=== PATIENT | male | born 2000 | race Caucasian/White ===

== ENCOUNTER → 2022-05-04 12:29 | Outpatient (CLI) | payer BC, SELFPAY ==
--- NOTE | 2022-05-04 12:37 | US_ITS ---
FINAL REPORT CLINICAL HISTORY: RIGHT AXILLARY LYMPHADENOPATHY COMPARISON: None FINDINGS: ULTRASOUND SOFT TISSUE LIMITED Sonographic images of the right axilla in the area of interest were obtained. There is a hypoechoic focus measuring 1.6 cm and a 2nd measuring 1.0 cm. These may represent sebaceous cysts or lymph nodes. IMPRESSION: Findings may represent sebaceous cyst or lymph nodes. Reviewed, Interpreted and Dictated by Antwan Wright MD Transcribed by Janet Hernandez Authenticated and [facility]
--- NOTE | 2022-05-04 12:37 | US_ITS ---
FINAL REPORT CLINICAL HISTORY: LEFT AXILLARY LYMPHADENOPATHY COMPARISON: None FINDINGS: ULTRASOUND SOFT TISSUE LIMITED Sonographic images of the left axilla in the area of interest were obtained. There are ovoid hypoechoic areas measuring up to 1.4 cm which may represent nodes or sebaceous cysts. IMPRESSION: Findings may represent nodes or sebaceous cysts. Correlate with palpable abnormalities. Reviewed, Interpreted and Dictated by Antwan Wright MD Transcribed by Janet Hernandez Authenticated and [facility]
== END ==
PROVIDERS: PCP Nurse Practitioner Family; Visit Provider Nurse Practitioner Family
DX: R59.0 Localized enlarged lymph nodes (principal)
CPT/HCPCS: 76882

== ENCOUNTER 2024-09-21 09:36 | Emergency (ER) | payer BC, SELFPAY ==
[2024-09-21 09:43] VITALS: BP 163/96; PULSE 106; RESP 19; TEMP 37; O2SAT 98; BMI 34.7
--- NOTE | 2024-09-21 10:05 | ED_ITS ---
Discharge Plan Disposition Patient Disposition: Home, Self-Care Prescriptions Prescriptions: New wmbzqxjn-hvfittbyx-VG 3.5-10,000-1 mg/mL-unit/mL-% drops,suspension 4 drp otic (ear) TID 7 Days Qty: 10 0RF Referrals Follow up/Referrals: Justin Hill MD [Physician, Ear, Nose, Throat] - See instructions Rose Marshall APRN [Primary Care Provider, Medical] - See instructions Activity Restrictions/Add. Instructions Additional Instructions/Restrictions: Evidence of severe bilateral otitis externa likely superimposed upon otitis media. I recommend you follow-up closely with ENT to ensure resolution. Return to the emergency department with severe headaches changes in mental status any neurologic complaints inability get your fever down with Tylenol or ibuprofen or other concerns. Clinical Impressions Clinical Impression: Bilateral otitis externa Print Language Print Language: Ukrainian Discharge ED Provider: Angie Kirk General Adult HPI General Chief complaint: Ear Stated complaint: poss. ruptured l. eardrum/infection in both fever Time Seen by Provider: 09/21/24 09:58 Mode of Arrival: Ambulatory Source of Information: Patient Description of Symptoms (Recalled from ER Triage Doc. by RN): Patient presents to ED from home reporting concerns his left eardrum ruptured . States he was dx with a bilateral ear infection yesterday and started having green fluid leaking from his left ear last night. States he is currently on ABX and Steroids. History of Present Illness HPI narrative: 24-year-old presenting today with bilateral ear pain. He is concerned that he may have a ruptured tympanic membrane because he had some discharge from his ears. States that several days ago he was cleaning his ears out and was using a Q-tip and was aggressively doing so and also using peroxide. Since that time he began having fevers pain and chills. Went to primary care doctor was started on Augmentin and prednisone. Fever yesterday evening. Related Data Previous Rx's ?Medication ?Instructions ?Recorded hsnzxwem-vcelvqcqm-wwgfllazr 3.5 4 drp otic (ear) TID 7 days #10 mL 09/21/24 mg-10,000 unit/mL-1 % ear drops,susp Allergies Allergy/AdvReac Type Severity Reaction Status Date / Time No Known Allergies Allergy Verified 09/21/24 09:51 [facility] Disclaimer: The information contained in this section may have been updated after the patient was seen, as this information can be updated by other users. Social History Smoking Status: Never smoker alcohol intake: never current occupational status: other Travel in the last 8 weeks?: None ROS Obtained: Yes All systems reviewed & no additional complaints except as documented Physical Exam General General appearance: alert and in no apparent distress ENT ENT exam: Present other (Severe bilateral otitis externa no evidence of any bleeding or tympanic membrane rupture bilaterally positive tragus sign bilaterally no pain or tenderness over the mastoid air cells) Respiratory Respiratory exam: Present normal lung sounds bilaterally Cardiovascular Cardiovascular exam: Present regular rate Neurological Exam Neurological exam: Present alert, oriented X3, CN II-XII intact and normal gait; Absent motor sensory deficit Medical Decision Making Medical Records Screening: Per USPSTF and CDC recommendations, given the prevalence of disease in our region, it is our hospital?s policy to screen for HIV and viral Hepatitis for all patients aged 18 and over and those with ongoing risk factors. Cr Inquiry Pt receiving controlled substance: No Vital Signs: 09/21/24 09:43 Temperature 98.6 F Temperature Source Oral Pulse Rate [Left] 106 H Respiratory Rate 19 Blood Pressure [Left Arm] 163/96 H Blood Pressure Mean [Left Arm] 118 Blood Pressure Source [Left Arm] Automatic Cuff 02 Sat by Pulse Oximetry 98 Oxygen Delivery Method Room Air Medical Decision Narrative: 24-year-old with severe bilateral otitis externa likely superimposed on otitis media. He is systemically ill out of proportion to what I am seeing externally. He has no mastoid air cell tenderness no significant headache no neurologic symptoms and not concerned at the moment about any intracranial extension however given the severity of this we will have him closely follow-up with ENT. Agree with his Augmentin and prednisone which he recently started. I will add topical drops to his regimen. Return precautions emphasized patient discharged in stable condition. Critical Care Critical Care Time Critical Care Time: No
[2024-09-21 10:15] VITALS: PULSE 104; RESP 19; O2SAT 97
[2024-09-21 10:57] VITALS: BP 163/96; PULSE 68; RESP 16; TEMP 36.9; O2SAT 97
--- NOTE | 2024-09-21 11:23 | PC.NURSE ---
Patient called this Emergency Department requesting that we transfer the prescription to a different store due to [facility] not having the prescription
== END 2024-09-21 10:58 | disposition home or self-care (01) ==
PROVIDERS: Emergency Provider Student in an Organized Health Care Education/Training Program; PCP Nurse Practitioner Family
DX: H60.93 Unspecified otitis externa, bilateral (principal)
CPT/HCPCS: 99283